=== PATIENT | female | born 1980 ===

== ENCOUNTER 2025-02-21 06:13 | Day surgery (SDC) | payer OTHER, SELFPAY | END 2025-02-21 09:45 | disposition home or self-care (01) | LOC: GI 06:13 | PROVIDERS: ATTENDING PHYSICIAN Surgery | DX: Z12.11 Encounter for screening for malignant neoplasm of colon (principal); Z80.0 Family history of malignant neoplasm of digestive organs; Q43.8 Other specified congenital malformations of intestine | CPT/HCPCS: G0121 ==